=== PATIENT | female | born 1985 | race Caucasian/White ===

== ENCOUNTER 2017-07-30 13:54 | Emergency (ER) | payer BC, SELFPAY | END 2017-07-30 16:00 | disposition home or self-care (01) | LOC: MADERS 13:54 | DX: J20.9 Acute bronchitis, unspecified (principal); F17.210 Nicotine dependence, cigarettes, uncomplicated; Z79.899 Other long term (current) drug therapy | CPT/HCPCS: 99283 ==

== ENCOUNTER 2017-12-27 21:36 | Emergency (ER) | payer BC ==
[2017-12-27] MEDS ORDERED: Dexamethasone 4 mg/ml Vial ONE (22:22)
[2017-12-27] MEDS ORDERED: Ketorolac Tromethamine 30 MG/ML VIAL ONE (22:35)
--- NOTE | 2017-12-27 22:40 | RAD ---
THREE VIEWS OF THE LEFT ANKLE: Comparison: None. History: Left ankle pain after dropping something on the foot and ankle. FINDINGS: Three views of the left ankle shows no evidence of acute fracture or dislocation. No soft tissue swel ling is seen. No degenerative changes are present. IMPRESSION: Unremarkable exam. POS: [email or web address]
--- NOTE | 2017-12-27 22:41 | RAD ---
THREE VIEWS LEFT FOOT: History: Left foot pain after dropping something on the foot and ankle. FINDINGS: Three views of the left foot shows no evidence of acute fracture or dislocation. No focal soft tissue swelling is seen. No degenerative changes are seen. IMPRESSION: No evidence of acute osseous abnormality. POS: [facility]
== END 2017-12-27 22:53 | disposition home or self-care (01) ==
LOC: MADERS 21:36
DX: G62.9 Polyneuropathy, unspecified (principal); F17.210 Nicotine dependence, cigarettes, uncomplicated; Z79.899 Other long term (current) drug therapy; X58.XXXA Exposure to other specified factors, initial encounter
CPT/HCPCS: 96372; J1100; J1885

== ENCOUNTER 2018-04-03 18:43 | Emergency (ER) | payer BC ==
[2018-04-03] MEDS ORDERED: Promethazine HCl 25 MG/ML VIAL ONE (19:12)
== END 2018-04-03 19:45 | disposition home or self-care (01) ==
LOC: MADERS 18:43
DX: K52.9 Noninfective gastroenteritis and colitis, unspecified (principal); F17.210 Nicotine dependence, cigarettes, uncomplicated
CPT/HCPCS: 96372; J2550

== ENCOUNTER 2018-09-13 07:41 | Emergency (ER) | payer BC | END 2018-09-13 08:05 | disposition home or self-care (01) | LOC: MADERS 07:41 | DX: H66.91 Otitis media, unspecified, right ear (principal); F17.210 Nicotine dependence, cigarettes, uncomplicated | CPT/HCPCS: 99282 ==

== ENCOUNTER 2019-04-18 14:37 | Emergency (ER) | payer BC, SELFPAY ==
[2019-04-18] MEDS ORDERED: Ondansetron ODT 4 MG TAB ONE (15:19)
[2019-04-18] MEDS ORDERED: Ketorolac Tromethamine 30 MG/ML VIAL ONE (15:19)
== END 2019-04-18 16:45 | disposition home or self-care (01) ==
LOC: MADERS 14:37
DX: G43.919 Migraine, unspecified, intractable, without status migrainosus (principal); F17.210 Nicotine dependence, cigarettes, uncomplicated
CPT/HCPCS: 96372; 99283; J1885; Q0162

== ENCOUNTER 2019-08-17 10:46 | Emergency (ER) | payer SELFPAY ==
[2019-08-17] MEDS ORDERED: Oseltamivir 75 MG CAP ONE (11:33)
== END 2019-08-17 11:40 | disposition home or self-care (01) ==
LOC: MADERS 10:46
DX: J11.1 Influenza due to unidentified influenza virus with other respiratory manifestations (principal); F17.210 Nicotine dependence, cigarettes, uncomplicated
CPT/HCPCS: 87081; 87430; 87804; 99283

== ENCOUNTER 2019-11-01 19:05 | Emergency (ER) | payer SELFPAY ==
[2019-11-01] MEDS ORDERED: Acetaminophen 500 MG TAB ONE (19:28)
[2019-11-01] MEDS ORDERED: Ibuprofen 800 MG TAB ONE (19:28)
== END 2019-11-01 20:15 | disposition home or self-care (01) ==
LOC: MADERS 19:05
DX: T63.2X1A Toxic effect of venom of scorpion, accidental (unintentional), initial encounter (principal); F17.210 Nicotine dependence, cigarettes, uncomplicated
CPT/HCPCS: 99282

== ENCOUNTER 2021-08-16 09:08 | Emergency (ER) | payer BC, SELFPAY ==
[~2021-08-16 09:08] MED LIST: Sodium Chloride 0.9% 1,000 ML BAG ONE
[2021-08-16] MEDS ORDERED: Ondansetron ODT 4 MG TAB ONE (09:59)
[2021-08-16] MEDS ORDERED: Metoclopramide HCl 10 MG/2 ML VIAL ONE (10:45)
[2021-08-16 10:49] LABS: #Basophils 0.1 thou/uL (0.0-0.2); #Lymphocytes 1.1 thou/uL (1.20-3.40); #Monocytes 0.3 thou/uL (0.11-0.59); #Neutrophils 7.6 thou/uL (1.40-6.50); %Basophils 0.6 % (0.0-1.0); %Eosinophils 0.4 % (0.0-10.0); %Lymphocytes 11.8 % (21.0-51.0); %Monocytes 3.4 % (0.0-10.0); %Neutrophils 83.8 % (42.0-75.0); Hemoglobin 13.4 g/dL (12.0-16.0); Mean Corpuscular Hemoglobin 29.2 pg (27.0-31.0); Mean Corpuscular Volume 91.4 fL (78.0-98.0); Mean Platelet Volume 7.2 fL (7.4-10.4); Platelet Count 222 thou/uL (130-400); RBC Distribution Width 11.5 % (11.5-14.5); White Blood Cell (WBC) Count 9.1 thou/uL (4.8-10.8)
[2021-08-16 11:02] LABS: ALT (SGPT) 18 U/L (8-55); AST (SGOT) 20 U/L (5-34); Albumin 4.2 g/dL (3.5-5.0); Alkaline Phosphatase 79 U/L (40-110); Anion Gap 11 mmol/L (10-20); BUN (Urea Nitrogen) 14 mg/dL (7.0-18.7); Bilirubin, Total 0.3 mg/dL (0.2-1.2); Calc. Creatinine Clearance 0 mL/min (70-130); Calcium 9.7 mg/dL (7.8-10.44); Carbon Dioxide 26 mmol/L (22-29); Chloride 109 mmol/L (98-107); Globulin 2.8 g/dL (2.4-3.5); Glucose 104 mg/dL (70-105); Potassium 4.1 mmol/L (3.5-5.1); Sodium 142 mmol/L (136-145)
== END 2021-08-16 11:43 | disposition home or self-care (01) ==
LOC: MADERS 09:08
DX: A09 Infectious gastroenteritis and colitis, unspecified (principal); F17.210 Nicotine dependence, cigarettes, uncomplicated
CPT/HCPCS: 80053; 85025; 96374; J2765; J7050; Q0162

== ENCOUNTER 2023-08-16 19:24 | Emergency (ER) | payer SELFPAY | END 2023-08-16 20:57 | disposition home or self-care (01) | LOC: MADERS 19:24 | DX: S93.402A Sprain of unspecified ligament of left ankle, initial encounter (principal); S93.602A Unspecified sprain of left foot, initial encounter; F17.210 Nicotine dependence, cigarettes, uncomplicated; X50.1XXA Overexertion from prolonged static or awkward postures, initial encounter ==

== ENCOUNTER 2023-11-19 11:01 | Emergency (ER) | payer SELFPAY ==
[2023-11-19 11:36] LABS: #Eosinphils 0.1 thou/uL (0.0-0.7); #Lymphocytes 1.7 thou/uL (1.20-3.40); #Monocytes 0.3 thou/uL (0.11-0.59); %Basophils 0.6 % (0.0-1.0); %Eosinophils 1.4 % (0.0-10.0); %Lymphocytes 23.9 % (21.0-51.0); %Monocytes 4.5 % (0.0-10.0); %Neutrophils 69.6 % (42.0-75.0); Hematocrit 38.2 % (36.0-47.0); Hemoglobin 11.9 g/dL (12.0-16.0); Mean Corpuscular HGB CONC 31.2 g/dL (32.0-36.0); Mean Corpuscular Hemoglobin 30.2 pg (27.0-31.0); Mean Corpuscular Volume 96.8 fl (78.0-98.0); Mean Platelet Volume 7.5 fL (7.4-10.4); Platelet Count 181 10x3/uL (130-400); RBC Distribution Width 12.1 % (11.5-14.5); Red Blood Cell (RBC) Count 3.94 mill/uL (4.20-5.40); White Blood Cell (WBC) Count 7.1 10x3/uL (4.8-10.8)
[2023-11-19] MEDS ORDERED: diphenhydrAMINE 50 MG/ML VIAL ONE (11:43)
[2023-11-19] MEDS ORDERED: Ketorolac Tromethamine 30 MG (1 mL) VIAL ONE (11:43)
[2023-11-19] MEDS ORDERED: Sodium Chloride 0.9% 500 ML ONE (11:43)
[2023-11-19] MEDS ORDERED: Metoclopramide HCl 10 MG (2 mL) VIAL ONE (11:43)
[2023-11-19 11:48] LABS: Anion Gap 13 mmol/L (10-20); BUN (Urea Nitrogen) 7 mg/dL (7.0-18.7); Calc. Creatinine Clearance 0 mL/min (70-130); Carbon Dioxide 25 mmol/L (22-29); Chloride 106 mmol/L (98-107); Estimated GFR 93; Glucose 90 mg/dL (70-105); Potassium 3.8 mmol/L (3.5-5.1); Sodium 140 mmol/L (136-145)
[2023-11-19 11:51] LABS: Troponin I Less than 0.010 ng/mL (< 0.028)
[2023-11-19 11:59] LABS: BHCG - Serum Negative (NEGATIVE); Pregs Control Background? CLEAR/WHITE (CLR/WHITE); Pregs Control Bar Appear? YES (CONTROL BAR)
== END 2023-11-19 12:34 | disposition home or self-care (01) ==
LOC: MADERS 11:01
DX: F43.0 Acute stress reaction (principal); R07.81 Pleurodynia; F17.290 Nicotine dependence, other tobacco product, uncomplicated; F17.210 Nicotine dependence, cigarettes, uncomplicated
CPT/HCPCS: 71045; 80048; 83880; 84484; 84703; 85025; 85379; 93005; 96361; 96374; 96375; J1200; J1885; J2765; J7030

== ENCOUNTER 2024-01-16 11:57 | Emergency (ER) | payer OTHER, SELFPAY ==
[2024-01-16 12:54] LABS: Influenza A by NAA Not Detected (NotDetected); Influenza B by NAA Not Detected (NotDetected); SARS-CoV-2 NAA Rapid Test Not Detected (NotDetected)
== END 2024-01-16 13:09 | disposition home or self-care (01) ==
LOC: MADERS 11:57
DX: J06.9 Acute upper respiratory infection, unspecified (principal); F17.210 Nicotine dependence, cigarettes, uncomplicated; F17.290 Nicotine dependence, other tobacco product, uncomplicated
CPT/HCPCS: 87081; 87430; 99283

== ENCOUNTER 2024-03-04 17:27 | Emergency (ER) | payer OTHER ==
[2024-03-04] MEDS ORDERED: Ondansetron PF 4 MG/2 ML Vial ONE (17:55)
[2024-03-04] MEDS ORDERED: Sodium Chloride 0.9% 1,000 ML ONE (17:55)
[2024-03-04] MEDS ORDERED: Morphine 4 MG/ML VIAL ONE (17:55)
[2024-03-04 18:09] LABS: #Basophils 0.1 thou/uL (0.0-0.2); #Eosinphils 0.2 thou/uL (0.0-0.7); #Lymphocytes 2.2 thou/uL (1.20-3.40); #Monocytes 0.4 thou/uL (0.11-0.59); #Neutrophils 3.8 thou/uL (1.40-6.50); %Basophils 1.2 % (0.0-1.0); %Eosinophils 3.1 % (0.0-10.0); %Lymphocytes 32.8 % (21.0-51.0); %Monocytes 5.9 % (0.0-10.0); Hematocrit 38.5 % (36.0-47.0); Hemoglobin 11.9 g/dL (12.0-16.0); Mean Corpuscular Hemoglobin 29.6 pg (27.0-31.0); Mean Corpuscular Volume 95.4 fl (78.0-98.0); Platelet Count 200 10x3/uL (130-400); RBC Distribution Width 11.6 % (11.5-14.5); Red Blood Cell (RBC) Count 4.04 mill/uL (4.20-5.40); White Blood Cell (WBC) Count 6.7 10x3/uL (4.8-10.8)
[2024-03-04] MEDS ORDERED: Ketorolac Tromethamine 30 MG (1 mL) VIAL ONE (18:11)
[2024-03-04 18:23] LABS: ALT (SGPT) 16 U/L (8-55); AST (SGOT) 17 U/L (5-34); Albumin 3.7 g/dL (3.5-5.0); Alkaline Phosphatase 63 U/L (40-110); Anion Gap 16 mmol/L (10-20); BUN (Urea Nitrogen) 14 mg/dL (7.0-18.7); Bilirubin, Total 0.3 mg/dL (0.2-1.2); CK (CPK) 51 U/L (29-168); Calc. Creatinine Clearance 0 mL/min (70-130); Calcium 9.4 mg/dL (7.8-10.44); Carbon Dioxide 21 mmol/L (22-29); Chloride 108 mmol/L (98-107); Estimated GFR 78; Globulin 2.8 g/dL (2.4-3.5); Glucose 99 mg/dL (70-105); Lipase 12 U/L (8-78); Potassium 3.5 mmol/L (3.5-5.1); Protein, Total 6.5 g/dL (6.0-8.3); Sodium 141 mmol/L (136-145); Troponin I Less than 0.010 ng/mL (< 0.028)
[2024-03-04 19:01] LABS: Bilirubin Negative (Negative); Blood, Urine Negative (Negative); Glucose, Urine (Dipstick) Negative (Negative); Ketone, Urine Negative (Negative); Leukocyte Negative (Negative); Nitrite Negative (Negative); Protein, Urine (Dipstick) Negative (Neg-Trace); pH, Urine 5.5 (5.0-9.0)
[2024-03-04 19:11] LABS: CAUTI Indications for Culture Pelvic or flank pain; Clarity Slightly Cloudy (Clear); RBC/HPF 0-3 HPF (0-3)
[2024-03-04 19:12] LABS: Bacteria/HPF Rare-Few HPF (None Seen); Urine Culture Reflex Yes Yes
== END 2024-03-04 19:59 | disposition home or self-care (01) ==
LOC: MADERS 17:27
DX: R07.9 Chest pain, unspecified (principal); N39.0 Urinary tract infection, site not specified; F17.210 Nicotine dependence, cigarettes, uncomplicated; F17.290 Nicotine dependence, other tobacco product, uncomplicated
CPT/HCPCS: 71046; 80053; 81001; 82550; 83690; 83880; 84484; 85025; 85379; 87086; 93005; 96374; 96375; J1885; J2272; J2405; J7030

== ENCOUNTER 2025-04-08 19:07 | Emergency (ER) | payer OTHER, SELFPAY ==
[2025-04-08] MEDS ORDERED: Prochlorperazine 10 MG/2 ML VIAL ONE (19:51)
[2025-04-08] MEDS ORDERED: Ketorolac Tromethamine 30 MG (1 mL) VIAL ONE (19:51)
[2025-04-08] MEDS ORDERED: diphenhydrAMINE 50 MG/ML VIAL ONE (19:51)
[2025-04-08 19:52] LABS: #Basophils 0.1 thou/uL (0.0-0.2); #Eosinophils 0.2 thou/uL (0.0-0.7); #Lymphocytes 2.2 thou/uL (1.20-3.40); #Monocytes 0.4 thou/uL (0.11-0.59); #Neutrophils 3.6 thou/uL (1.40-6.50); %Basophils 1.5 % (0.0-1.0); %Eosinophils 2.4 % (0.0-10.0); %Lymphocytes 34.0 % (21.0-51.0); %Monocytes 5.8 % (0.0-10.0); %Neutrophils 56.3 % (42.0-75.0); Hematocrit 39.8 % (36.0-47.0); Hemoglobin 12.9 g/dL (12.0-16.0); Mean Corpuscular Hemoglobin 30.7 pg (27.0-31.0); Mean Corpuscular Volume 94.5 fl (78.0-98.0); Platelet Count 223 10x3/uL (130-400); Red Blood Cell (RBC) Count 4.22 mill/uL (4.20-5.40); White Blood Cell (WBC) Count 6.4 10x3/uL (4.8-10.8)
[2025-04-08 20:10] LABS: Troponin I Less than 0.010 ng/mL (< 0.028)
[2025-04-08 20:14] LABS: ALT (SGPT) 16 U/L (Less than 34); AST (SGOT) 22 U/L (11-34); Albumin 4.2 g/dL (3.1-4.5); Alkaline Phosphatase 56 U/L (40-110); Anion Gap 17 mmol/L (10-20); BHCG - Serum Negative (NEGATIVE); BUN (Urea Nitrogen) 11 mg/dL (7.0-18.7); Bilirubin, Total 0.4 mg/dL (0.3-1.2); Calc. Creatinine Clearance 0 mL/min (70-130); Calcium 9.1 mg/dL (7.8-10.44); Carbon Dioxide 21 mmol/L (22-29); Chloride 107 mmol/L (98-107); Globulin 2.7 g/dL (2.4-3.5); Glucose 90 mg/dL (70-105); Lipase 12 U/L (8-78); Potassium 4.0 mmol/L (3.5-5.1); Pregs Control Background? CLEAR/WHITE (CLR/WHITE); Pregs Control Bar Appear? YES (CONTROL BAR); Sodium 141 mmol/L (136-145)
== END 2025-04-08 20:48 | disposition home or self-care (01) ==
LOC: MADERS 19:07
DX: G43.909 Migraine, unspecified, not intractable, without status migrainosus (principal); R29.700 NIHSS score 0; F17.210 Nicotine dependence, cigarettes, uncomplicated; F17.290 Nicotine dependence, other tobacco product, uncomplicated
CPT/HCPCS: 71046; 80053; 83690; 84484; 84703; 85025; 93005; 94760; 96365; 96375; J0780; J1200; J1885; J7120